=== PATIENT | female | born 1995 | race African-American/Black ===

== ENCOUNTER 2016-08-12 10:11 | Emergency (ER) | payer OTHER ==
[2016-08-12 10:18] VITALS: BP 116/71; PULSE 86; TEMP 98; BMI 17.9
[2016-08-12 11:00] LABS: URINE APPEARANCE CLEAR; URINE BILIRUBIN NEGATIVE (NEGATIVE); URINE COLOR YELLOW; URINE GLUCOSE (UA) NEGATIVE (NEGATIVE); URINE KETONE NEGATIVE (NEGATIVE); URINE LEUK ESTERASE NEGATIVE (NEGATIVE); URINE NITRITE NEGATIVE (NEGATIVE); URINE PROTEIN NEGATIVE (NEGATIVE); URINE UROBILINOGEN NEGATIVE E.U./dl (0.2-1.0)
--- NOTE | 2016-08-12 11:21 | PDOC ---
History of Present Illness - General Chief Complaint: ,Possible Stated Complaint: CRAMPS,SPOTTING, TEST Time Seen by Provider: 08/12/16 10:32 History Source: Patient Exam Limitations: No Limitations - History of Present Illness Initial Comments: 08/12/16 11:19 21 yr female with c/o spotting states last period was 07/24/16 and thinks she may be . no abd pain. no vaginal discharge. c/o intermittent suprapubic discomfort. 08/12/16 15:37 08/12/16 15:40 Timing/Duration: unsure Past History - Past Medical History Allergies/Adverse Reactions: Allergies Allergy/AdvReac Type Severity Reaction Status Date / Time amoxicillin Allergy Verified 08/12/16 10:14 Home Medications: Ambulatory Orders NK [No Known Home Medication] 08/12/16 Asthma: Yes - Surgical History Other Surgical History: 08/12/16 15:40 none - Family Disease History Comment:: 08/12/16 15:40 none - Psycho/Social/Smoking Cessation Hx Suicidal Ideation: No Smoking History: Never smoked Information on smoking cessation initiated: No Hx Alcohol Use: No Drug/Substance Use Hx: No Review of Systems - Review of Systems Able to Perform ROS?: Yes Is the patient limited Indonesian proficient: No Constitutional: No: Symptoms Reported HEENTM: No: Symptoms Reported Respiratory: No: Symptoms reported Cardiac (ROS): No: Symptoms Reported ABD/GI: No: Symptoms Reported : Yes: Symptoms Reported, See HPI *Physical Exam - Vital Signs Last Vital Signs Temp Pulse Resp BP Pulse Ox 98.0 F 86 16 116/71 100 08/12/16 10:15 08/12/16 10:15 08/12/16 10:15 08/12/16 10:15 08/12/16 10:15 - Physical Exam General Appearance: Yes: Nourished, Appropriately Dressed HEENT: positive: EOMI, NENA, Normal ENT Inspection, TMs Normal, Pharynx Normal Neck: positive: Supple Respiratory/Chest: positive: Lungs Clear, Normal Breath Sounds Cardiovascular: positive: Regular Rhythm, Regular Rate Gastrointestinal/Abdominal: positive: Normal Bowel Sounds, Soft. negative: Tender Musculoskeletal: positive: Normal Inspection Extremity: positive: Normal Capillary Refill, Normal Inspection, Normal Range of Motion Integumentary: positive: Normal Color, Dry, Warm Neurologic: positive: inside barrel polisher II-XII NML intact, Fully Oriented, Alert, Normal Mood/ Affect, Normal Response, Motor Strength 11/04 ED Treatment Course - ADDITIONAL ORDERS Additional order review: Laboratory Results 08/12/16 10:36 Urine HCG, Qual Negative Medical Decision Making - Medical Decision Making 08/12/16 15:48 cc: irregular period will r/o , UTI, gc chlamydia pt has a marketing analytics specialist to follow up with. pt denies any use of morning after pill or any change in hormonal or use of hormonal control pt has no fever no abd pain , no diarrhea 08/12/16 15:49 negative I have discused with pt to follow with marketing analytics specialist if period does not come regular time or any other concerns pt agrees *DC/Admit/Observation/Transfer Diagnosis at time of Disposition: Irregular menses - Discharge Dispostion Disposition: HOME Condition at time of disposition: Good - Patient Instructions Additional Instructions: follow with your mexican food machine tender if your period continues to be irregular
[2016-08-12 11:36] LABS: URINE BLOOD 1+ (NEGATIVE)
[2016-08-12 11:39] LABS: URINE HYALINE CAST 4 /lpf; URINE MUCUS MANY; URINE RBC 2 /hpf (0-3); URINE WBC 2 /hpf (3-5)
== END 2016-08-12 11:39 | disposition home or self-care (01) ==
LOC: JERFT 10:11
DX: N92.6 Irregular menstruation, unspecified (principal)
CPT/HCPCS: 81003; 81015; 84703; 99281-25